=== PATIENT | male | born 1990 | race Native Hawaiian/Other Pacific Islander ===

== ENCOUNTER 2019-12-31 12:34 | Emergency (ER) | payer OTHER ==
[~2019-12-31] VITALS: Ht 177.8 cm; Wt 67.6 kg
[2019-12-31 12:38] VITALS: TEMP 99.3
[2019-12-31 13:26] LABS: PLATELET COUNT 262 K/uL (142-355)
[2019-12-31 13:31] LABS: POTASSIUM 3.5 mmol/L (3.6-5.2)
[2019-12-31 14:16] VITALS: BP 128/80
== END 2019-12-31 14:16 | disposition home or self-care (01) ==
LOC: ED 12:34
PROVIDERS: Emergency Medicine
DX: L03.115 Cellulitis of right lower limb (principal); T63.391A Toxic effect of venom of other spider, accidental (unintentional), initial encounter; Y92.89 Other specified places as the place of occurrence of the external cause
CPT/HCPCS: 80053; 85027; 96372; 99283; J0696

== ENCOUNTER 2021-07-15 21:12 | Emergency (ER) | payer OTHER ==
[~2021-07-15] VITALS: Ht 180.3 cm; Wt 79.4 kg
[2021-07-15 23:15] VITALS: BP 138/89; TEMP 97.9
== END 2021-07-15 23:15 | disposition home or self-care (01) ==
LOC: ED 21:12
DX: M79.642 Pain in left hand (principal)
CPT/HCPCS: 96372; 99283; J0696; J1885

== ENCOUNTER 2022-07-09 13:12 | Emergency (ER) | payer OTHER ==
[~2022-07-09] VITALS: Ht 180.3 cm; Wt 74.8 kg
[2022-07-09 13:21] VITALS: TEMP 98.5
[2022-07-09 14:14] LABS: PLATELET COUNT 292 K/uL (142-355)
[2022-07-09 14:20] LABS: POTASSIUM 4.4 mmol/L (3.6-5.2)
[2022-07-09 18:02] VITALS: BP 122/80
== END 2022-07-09 18:02 | disposition short-term general hospital (02) ==
LOC: ED 13:12
PROVIDERS: Emergency Medicine
DX: K72.00 Acute and subacute hepatic failure without coma (principal)
CPT/HCPCS: 36415; 80053; 80143; 80179; 80307; 80320; 81002; 83690; 85027; 93005; 96360; 96374; 99284; J2405; J3490; J7060